=== PATIENT | female | born 1955 | race Caucasian/White ===

== ENCOUNTER → 2017-05-16 | Outpatient (CLI) | payer BC ==
--- NOTE | 2017-05-17 17:31 | PCVCIMAG ---
APPROVED REPORT Exam: Stress Echocardiogram Indication: Hyperlipidemia, Hypertension, chest pain Patient Location: Echo lab Stress Nurse: Claritza Hernandez RN Status: routine HR: 106 bpm Procedure The patient underwent an Exercise Stress Test using the Abiel Protocol. Blood pressure, heart rate, and EKG were monitored. An Echocardiogram was performed by physical therapist technician in four stages in quad fashion. At peak stress, four selected images were obtained and placed side by side with resting images for comparison. Stress Test Details Stress Test: Exercise stress testing was performed using a Abiel protocol. HR Resting HR: 106 bpmMax Heart Rate (APMHR): 161 bpm Max HR Achieved: 153 bpmTarget HR (85% APMHR): 136 bpm % of APMHR: 95 BP Resting BP: 130/80 mmHg Max BP: 164/80 mmHg ECG Resting ECG: Sinus Rhythm Stress ECG: Sinus Rhythm Arrhythmia: None Recovery ECG: Sinus Rhythm Clinical Reason for Termination: Maximal effort Stress Symptoms: Fatigue Exercise duration: 6 min sec Highest Stage Achieved: Stage 2: 2.5 mph at 12% grade. Exercise capacity: 153 METs Overall Exercise Capacity for Age: Poor Stress ECG Conclusion 1.subjectively negative for ischemia 2.electrocardiographically negative for ischemia 3.decreased functionalcapacity Pre-Stress Echo The resting Echocardiogram showed normal left ventricular contractility with an estimated Ejection Fraction of about >55%. Normal wall motion in all segments on baseline images. Post-Stress Echo The stress Echocardiogram showed normal left ventricular contractility with an estimated Ejection Fraction of about 55-60%. Normal augmentation of wall motion in all segments on post stress images. Conclusion Clinical Response: Non-ischemic Exercise Capacity: Below Average Stress ECG Response: Non-ischemic Stress Echo Images: Non-ischemic 1. low risk study <Conclusion> 1. low risk study
== END | disposition home or self-care (01) ==
LOC: PCVCIMAG 12:50
PROVIDERS: ATTEND Internal Medicine
DX: I10 Essential (primary) hypertension (principal); E78.5 Hyperlipidemia, unspecified; E78.00 Pure hypercholesterolemia, unspecified
CPT/HCPCS: 93325; 93351